=== PATIENT | male | born 1990 | race Native Hawaiian/Other Pacific Islander ===

== ENCOUNTER 2024-04-01 14:48 | Outpatient (CLI) | payer MEDICAID, SELFPAY | END 2024-04-01 14:49 | disposition home or self-care (01) | PROVIDERS: PCP Family Medicine; Visit Provider Family Medicine | DX: G40.909 Epilepsy, unspecified, not intractable, without status epilepticus (principal); Z79.899 Other long term (current) drug therapy | CPT/HCPCS: 80164; 80165; 80235; 82140 ==

== ENCOUNTER 2024-08-25 10:13 | Outpatient (CLI) | payer MEDICAID, SELFPAY | END 2024-08-25 10:14 | disposition home or self-care (01) | PROVIDERS: PCP Family Medicine; Visit Provider Family Medicine | DX: Z00.00 Encounter for general adult medical examination without abnormal findings (principal); G40.909 Epilepsy, unspecified, not intractable, without status epilepticus | CPT/HCPCS: 80048; 80164; 80165; 80235; 84460; 85025 ==

== ENCOUNTER 2025-01-17 11:03 | Emergency (ER) | payer MEDICAID, SELFPAY ==
--- OUTSIDE RECORDS SUMMARY | 2025-01-16 18:59 | XMS_ITS | Encounter Summary ---
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 Burgos MD IM CT ORDERABLES Final Result * (ABNORMAL) CBC with platelets and differential (01/16/2025 7:39 PM ADMINISTRATIVE SUPPORT TECHNICIAN) WBC Count 7.15 4.00 - 11.00 10e3/uL 01/16/2025 7:56 PM ADMINISTRATIVE SUPPORT TECHNICIAN [facility] RBC Count 4.27(L) 4.40 - 5.90 10e6/uL 01/16/2025 7:56 PM ADMINISTRATIVE SUPPORT TECHNICIAN [facility] Hemoglobin 14.1 13.3 - 17.7 g/dL 01/16/2025 7:56 PM ADMINISTRATIVE SUPPORT TECHNICIAN [facility] Hematocrit 41.9 40.0 - 53.0 % 01/16/2025 7:56 PM ADMINISTRATIVE SUPPORT TECHNICIAN [facility] MCV 98.1 78.0 - 100.0 fL 01/16/2025 7:56 PM ADMINISTRATIVE SUPPORT TECHNICIAN [facility] MCH 33.0 26.5 - 33.0 pg 01/16/2025 7:56 PM ADMINISTRATIVE SUPPORT TECHNICIAN [facility] MCHC 33.7 31.5 - 36.5 g/dL 01/16/2025 7:56 PM ADMINISTRATIVE SUPPORT TECHNICIAN [facility] RDW 11.8 10.0 - 15.0 % 01/16/2025 7:56 PM ADMINISTRATIVE SUPPORT TECHNICIAN [facility] Platelet Count 262 150 - 450 10e3/uL 01/16/2025 7:56 PM ADMINISTRATIVE SUPPORT TECHNICIAN [facility] % Neutrophils 64.1 % 01/16/2025 7:56 PM ADMINISTRATIVE SUPPORT TECHNICIAN [facility] % Lymphocytes 30.2 % 01/16/2025 7:56 PM ADMINISTRATIVE SUPPORT TECHNICIAN [facility] % Monocytes 4.8 % 01/16/2025 7:56 PM ADMINISTRATIVE SUPPORT TECHNICIAN [facility] % Eosinophils 0.0 % 01/16/2025 7:56 PM ADMINISTRATIVE SUPPORT TECHNICIAN [facility] % Basophils 0.6 % 01/16/2025 7:56 PM ADMINISTRATIVE SUPPORT TECHNICIAN [facility] % Immature Granulocytes 0.3 % 01/16/2025 7:56 PM ADMINISTRATIVE SUPPORT TECHNICIAN [facility] NRBCs per 100 WBC 0.0 <1.0 /100 025 7:56 PM ADMINISTRATIVE SUPPORT TECHNICIAN [facility] Absolute Neutrophils 4.59 1.60 - 8.30 10e3/uL 01/16/2025 7:56 PM ADMINISTRATIVE SUPPORT TECHNICIAN [facility] Absolute Lymphocytes 2.16 0.80 - 5.30 10e3/uL 01/16/2025 7:56 PM ADMINISTRATIVE SUPPORT TECHNICIAN [facility] Absolute Monocytes 0.34 0.00 - 1.30 10e3/uL 01/16/2025 7:56 PM ADMINISTRATIVE SUPPORT TECHNICIAN [facility] Absolute Eosinophils <0.03 0.00 - 0.70 10e3/uL 01/16/2025 7:56 PM ADMINISTRATIVE SUPPORT TECHNICIAN [facility] Absolute Basophils 0.04 0.00 - 0.20 10e3/uL 01/16/2025 7:56 PM ADMINISTRATIVE SUPPORT TECHNICIAN [facility] Absolute Immature Granulocytes <0.03 <=0.40 10e3/uL 01/16/2025 7:56 PM ADMINISTRATIVE SUPPORT TECHNICIAN [facility] Absolute NRBCs <0.03 10e3/uL 01/16/2025 7:56 PM ADMINISTRATIVE SUPPORT TECHNICIAN [facility] Blood STRUCTURE OF LEFT HAND / Unknown Venipuncture / Unknown 01/16/2025 7:39 PM ADMINISTRATIVE SUPPORT TECHNICIAN 01/16/2025 7:48 PM ADMINISTRATIVE SUPPORT TECHNICIAN us Gonzalez Burgos MD LAB - BLOOD ORDERABLES Final Result [facility] [address] Lab (1st floor, no room number) [place] [address], [facility] * (ABNORMAL) Ethanol Level Blood (01/16/2025 7:39 PM ADMINISTRATIVE SUPPORT TECHNICIAN) Ethanol Level Blood 0.35(HH) <=0.01 g/dL 01/16/2025 8:25 PM ADMINISTRATIVE SUPPORT TECHNICIAN [facility] Comment:This is an unconfirm ed screening result to be used for medical purposes only. Blood STRUCTURE OF LEFT HAND / Unknown Venipuncture / Unknown 01/16/2025 7:39 PM ADMINISTRATIVE SUPPORT TECHNICIAN 01/16/2025 7:48 PM ADMINISTRATIVE SUPPORT TECHNICIAN us Gonzalez Burgos MD LAB - BLOOD ORDERABLES Final Result [facility] [address] [facility] ([facility] floor, no room number) [place] [address], [facility] * (ABNORMAL) Basic Metabolic Panel (Limited Occurrences) (01/16/2025 7:39 PM ADMINISTRATIVE SUPPORT TECHNICIAN) [facility] Sodium 142 135 - 145 mmol/L 01/16/2025 8:[address] [facility] Potassium 3.6 3.4 - 5.3 mmol/L 01/16/2025 8:[address] [facility] Chloride 105 98 - 107 mmol/L 01/16/2025 8:[address] [facility] Carbon Dioxide (CO2) 19(L) 22 - 29 mmol/L 01/16/2025 8:[address] [facility] Anion Gap 18(H) 7 - 15 mmol/L 01/16/2025 8:[address] [facility] Urea Nitrogen 9.4 6.0 - 20.0 mg/dL 01/16/2025 8:[address] [facility] Creatinine 0.86 0.67 - 1.17 mg/dL 01/16/2025 8:[address] [facility] GFR Estimate >90 >60 mL/min/1.7 3m2 01/16/2025 8:[address] [facility] Comment:eGFR calculated usin 2020 CKD-EPI equation. Calcium 9.1 8.8 - 10.4 mg/dL 01/16/2025 8:[address] [facility] Glucose 108(H) 70 - 99 mg/dL 01/16/2025 8:[address] [facility] Blood STRUCTURE OF LEFT HAND / Unknown Venipuncture / Unknown 01/16/2025 7:39 PM ADMINISTRATIVE SUPPORT TECHNICIAN 01/16/2025 7:48 PM ADMINISTRATIVE SUPPORT TECHNICIAN Gonzalez Burgos MD LAB - BLOOD ORDERABLES Final Result [facility] [address] [facility] Lab (1st floor, no room number) [place] [address], [facility] documented in this encounter Visit Diagnoses Diagnosis Alcoholic intoxication with complication- Primary Facial contusion, initial encounter Arm laceration, left, sequela Abrasions of multiple sites Abrasion or friction burn of other, multiple, and unspecified sites, without mention of infection documented in this encounter Administered Medications Active Administered Medications - up to 3 most recent administrations Medication Order MAR Action Action Date Dose Rate Site OLANZapine (zyPREXA) injection 10 mg 10 mg, Intramuscular, DAILY PRN, agitation, Starting on 01/16/25 at 1919, Dissolve the contents of the 10 mg vial using 2.1 mL of Sterile Water for Injection to provide a solution containing 5 mg/mL of olanzapine. Withdraw the ordered dose from vial. Use immediately (within 1 hour) after reconstitution. Discard any unused portion. $Given 01/16/2025 7:00 PM ADMINISTRATIVE SUPPORT TECHNICIAN 10 mg Inactive Administered Medications - up to 3 most recent administrations Medication Order MAR Action Action Date Dose Rate Site midazolam (VERSED) injection 5 mg 5 mg, Intramuscular, Administer over 2 Minutes, ONCE, On 01/16/25 at 1905, For 1 dose, This drug may cause significant respiratory depression. Monitor respiratory status and vital signs carefully for 1 hour after each dose. $Given 01/16/2025 7:10 PM ADMINISTRATIVE SUPPORT TECHNICIAN 5 mg documented in this encounter Active and Recently Administered Medications Times are shown in ADMINISTRATIVE SUPPORT TECHNICIAN. Scheduled Medication Order 01/15/2025 01/16/2025 01/17/2025 midazolam (VERSED) injection 5 mg (COMPLETED) 5 mg, Intramuscular, Administer over 2 Minutes, ONCE, On 01/16/25 at 1905, For 1 dose, This drug may cause significant respiratory depression. Monitor respiratory status and vital signs carefully for 1 hour after each dose. 1909 ($Given - Provider: Jesus Joyce RN) PRN Medication Order 01/15/2025 01/16/2025 01/17/2025 OLANZapine (zyPREXA) injection 10 mg 10 mg, Intramuscular, DAILY PRN, agitation, Starting on 01/16/25 at 1919, Dissolve the contents of the 10 mg vial using 2.1 mL of Sterile Water for Injection to provide a solution containing 5 mg/mL of olanzapine. Withdraw the ordered dose from vial. Use immediately (within 1 hour) after reconstitution. Discard any unused portion. 1900 ($Given - Provider: Jesus Joyce RN) No Frequency Medication Order 01/15/2025 01/16/2025 01/17/2025 lidocaine 1% with EPINEPHrine 1:100,000 1 %-[id number] injection Starting on 01/17/25 at 0725, For 1 dose, Paige Adams A: cabinet override [id number] (Due) documented in this encounter Care Teams Surgical Tech Relationship Specialty Start Date End Date No Ref-Primary, Physician PCP - General 01/17/25 documented as of this encounter
--- OUTSIDE RECORDS SUMMARY | 2025-01-17 11:06 | XMS_ITS | Clinical Summary ---
Author Organization [facility] Address [address] [place] [id number] Care Team Providers Care Legal Technician Name Role Phone None Primary Care Provider Unavailabl e Allergies No known active allergies Medications diazePAM CONCENTRATE (DIAZEPAM INTENSOL) 5 mg/mL solutionIndicati ons:Seizure (HC) Take 2 mL (10 mg) by mouth every 8 hours if needed for Seizures (lasting > 3 minutes. May repeat x 1 if seizure continues additional 10 minutes.). 30 mL 4 Active lacosamide 100 mg tabletIndication s:Seizure (HC) Take 1 Tablet (100 mg) by mouth two times daily. 60 Tablet 03/24/2024 11:15 AM MEDICAL REVIEWER 5 Active mirtazapine 15 mg tablet Take 15 mg by mouth at bedtime. 5 Active traMADoL 50 mg tabletIndication s:Dental infection Take 1 Tablet (50 mg) by mouth every 6 hours if needed for Pain. 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 Tuberculosis 04/24/2020 Sinusitis 04/24/2020 Encounters Date Type Department Care Team Description 12/30/2024 11:39 AM CDT - 12/30/2024 2:33 PM CDT Emergency [facility] [address] [facility] [place] [address] Fran Martinez MD Seizure (HC) (Primary Dx) Discharge Disposition: Home Self Care 12/30/2024 Travel 12/06/2024 12:47 PM CDT - 12/06/2024 4:45 PM CDT Emergency [facility] [address] [place] [address] Acute streptococcal pharyngitis (Primary Dx); Wound of right lower extremity, initial encounter; Nonintractable epilepsy without status epilepticus, unspecified epilepsy type (HC) Discharge Disposition: Home Self Care 12/06/2024 Travel 11/16/2024 5:34 PM CDT - 11/16/2024 8:35 PM CDT Emergency [facility] [address] [place] [address] Panfilo Schulte PA Seizure (HC) (Primary Dx); Acute nonintractable headache, unspecified headache type; Upper respiratory tract infection, unspecified type Discharge Disposition: Home Self Care 11/16/2024 Travel from Last 3 Months Immunizations Immunization Administration Dates Next Due Tdap 06/16/2024 Social History Tobacco Use Types Packs/Day Years Used Date Smoking Tobacco: Some Days Cigarettes Smokeless Tobacco: Never Tobacco Cessation:Ready to Q uit: Not Asked; Counseling Given: Not Answered Alcohol Use Standard Drinks/Week Comments Not Currently 0 (1 standard drink = 0.6 oz pur e alcohol) Interpersonal Safety Answer Date Record ed Are you being hit, kicked, p ushed or yelled at (see row info)? No 12/30/2024 Interpersonal Safety Abuse 12 - 18 Not on file 12/30/2024 Interpersonal Safety Ambulatory Vulnerability No t on file 12/30/2024 Sex and Gender Information Value Date Recorded Sex Assigned at Male 06/16/2024 10:24 PM CDT Legal Sex Male 3:50 PM CDT Gender Identity Male 06/16/2024 10:24 PM CDT Sexual Orientation Straight 06/16/2024 10 :24 PM CDT Obstetrics History Last Filed Vital Signs Vital Sign Reading Time Taken Comments Blood Pressure 111/65 12/30/2024 1:41 PM CDT Pulse 54 12/30/2024 1:41 PM CDT Temperature 36.8 C (98.2 F) 12/30/2024 11:41 AM CDT Respiratory Rate 28 12/30/2024 1:41 PM CDT Oxygen Saturation 95% 12/30/2024 1:41 PM CDT Inhaled Oxygen Concentration - - Weight 94.3 kg (208 lb) 12/30/2024 11:41 AM CDT Height 177.8 cm (5' 10) 12/30/2024 11:41 AM CDT Body Mass Index 29.84 12/30/2024 11:41 AM CDT Plan of Treatment Health Maintenance Due Date Last Done Comments Depression screening for age 12+ 2003 BMI (ht and wt on same day) for age 18+ 11/08/2009 Hepatitis C screening for age 18-79 11/08/2009 Hepatitis B series for 19+ ( 1 of 3 - 19+ 3-dose series) 11/08/2010 Pneumococcal series for age 6-49 (1 of 2 - PCV) 2010 HPV series for age 9-45 (1 - 3-dose SCDM series) 11/08 Influenza Vaccine (#1) 2024 Tetanus booster 06/16/2034 06/16/2024 RSV vaccine for adults or pr egnancy (1 - 1-dose 75+ series) 11/08/2066 HIV for age 15-65 Completed 03/20/2024 Procedures Procedure Name Priority Date/Time Associated Diagnosis Comments VALPROIC ACID TOTAL STAT 12/30/2024 1 2:10 PM CDT LACOSAMIDE (VIMPAT) STAT 12/30/2024 1 2:10 PM CDT MAGNESIUM STAT 12/30/2024 12:10 PM CDT COMP METABOLIC PANEL STAT 12/30/2024 12:10 PM CDT CBC W PLT NO DIFF STAT 12/30/2024 12: 10 PM CDT INFLUENZA A/B PCR STAT 12/06/2024 1:3 1 PM CDT COVID-19 MOLECULAR STAT 12/06/2024 1: 31 PM CDT UA W/ SEDIMENT EXAM REFLEXED PER CRITERIA STAT 12/06/2024 1:31 PM CDT THROAT RAPID STREP ONLY CLINIC STAT 12/06/2024 1:31 PM CDT UA W/ SEDIMENT EXAM REFLEXED PER CRITERIA STAT 11/16/2024 7:57 PM CDT XR CHEST 1 VIEW PORTABLE STAT 11/16/2024 7:05 PM CDT EXTRA TUBE LIGHT GREEN Today 11/16/2024 6:01 PM CDT CBC WITH AUTO DIFFERENTIAL STAT 11/16/2024 6:01 PM CDT LACTATE VENOUS Today 11/16/2024 6:01 PM CDT C-REACTIVE PROTEIN STAT 11/16/2024 6: 01 PM CDT BASIC METABOLIC PANEL STAT 11/16/2024 6:01 PM CDT CBC WITH AUTO DIFFERENTIAL STAT 11/16/2024 6:01 PM CDT COVID-19 MOLECULAR Today 11/16/2024 5: 43 PM CDT INFLUENZA A/B PCR STAT 11/16/2024 5:4 3 PM CDT RAPID HIV SCREEN Today 03/20/2024 3:29 PM MEDICAL REVIEWER from Last 3 Months or Most Recently Relevant to Health Maintenance Results * (ABNORMAL) LACOSAMIDE (VIMPAT) (12/30/2024 12:10 PM CDT) Pathologist [facility] LACOSAMIDE 3.6(L) 5.0 - 10.0 ug/mL 01/06/2025 11:09 AM MEDICAL REVIEWER [facility] ([facility]) Comment: Limit of Detection 0.5 Mean plasma concentrations following maintenance dose 200 mg/day 4.99 +/- 2.51 ug/mL 400 mg/day 9.35 +/- 4.22 ug/mL 600 mg/day 12.46 +/- 5.60 ug/mL Blood BLOOD SPECIMEN / Unknown IV Start / Unknown 12/30/2024 12:10 PM CDT 12/30/2024 12:16 PM CDT Narrative [facility] ([facility]) - 01/06/2025 11:09 AM MEDICAL REVIEWER Test(s) 780774-[id number] was developed and its performance characteristics determined by [facility]. It has not been cleared or approved by the Food and Drug Administration. Performed at: - [address] [id number] Edge Drummer: Jessi Simon MD, Phone: [phone] us Frna Martinez MD CHEMISTRY Final Res ult [facility] ([facility]) [address] [place] [address], * (ABNORMAL) CBC W PLT NO DIFF (12/30/2024 12:10 PM CDT) [facility] WHITE BLOOD COUNT 6.2 4.5 - 11.0 thou/cu mm 12/30/2024 12:27 PM CDT [facility] RED BLOOD COUNT 3.76(L) 4.30 - 5.90 mil/cu mm 12/30/2024 12:27 PM CDT [facility] HEMOGLOBIN 12.4(L) 13.5 - 17.5 g/dL 12/30/2024 12:27 PM CDT [facility] HEMATOCRIT 37.0 37.0 - 53.0 % 12/30/2024 12:27 PM CDT [facility] MCV 98 80 - 100 fL 12/30/2024 12:27 PM CDT [facility] MCH 33.0 26.0 - 34.0 pg 12/30/2024 12:27 PM CDT [facility] MCHC 33.5 32.0 - 36.0 g/dL 12/30/2024 12:27 PM CDT [facility] RDW 12.0 11.5 - 15.5 % 12/30/2024 12:27 PM CDT [facility] PLATELET COUNT 208 140 - 440 thou/cu mm 12/30/2024 12:27 PM CDT [facility] MPV 10.0 6.5 - 11.0 fL 12/30/2024 12:27 PM CDT [facility] NRBC 0.0 % 12/30/2024 12:27 PM CDT [facility] ABS NRBC 0.0 thou /cu mm 12/30/2024 12:27 PM CDT [facility] Blood BLOOD SPECIMEN / Unknown IV Start / Unknown 12/30/2024 12:10 PM CDT 12/30/2024 12:16 PM CDT Fran Martinez MD HEMATOLOGY Final Res ult [facility] [address] [place] [address] * (ABNORMAL) VALPROIC ACID TOTAL (12/30/2024 12:10 PM CDT) VALPROIC ACID,TOTAL 37.4(L) 50.0 - 100.0 ug/mL 12/30/2024 7:39 PM CDT [facility] Blood BLOOD SPECIMEN / Unknown IV Start / Unknown 12/30/2024 12:10 PM CDT 12/30/2024 12:16 PM CDT Fran Martinez MD CHEMISTRY Final Res ult [facility] [address] [place] [address], * MAGNESIUM (12/30/2024 12:10 PM CDT) MAGNESIUM 1.9 1.6 - 2.6 mg/dL 12/30/2024 12:41 PM CDT [facility] Blood BLOOD SPECIMEN / Unknown IV Start / Unknown 12/30/2024 12:10 PM CDT 12/30/2024 12:16 PM CDT us Fran Martinez MD CHEMISTRY Final Res ult [facility] [address] [place] [address] * (ABNORMAL) COMP METABOLIC PANEL (12/30/2024 12:10 PM CDT) SODIUM 139 136 - 145 mmol/L 12/30/2024 12:41 PM CDT [facility] POTASSIUM 4.7 3.5 - 5.1 mmol/L 12/30/2024 12:41 PM CDT [facility] CHLORIDE 107 98 - 107 mmol/L 12/30/2024 12:41 PM CDT [facility] CO2,TOTAL 22 22 - 29 mmol/L 12/30/2024 12:41 PM CDT [facility] ANION GAP 10 5 - 18 12/30/2024 12:41 PM CDT [facility] GLUCOSE 85 70 - 99 mg/dL 12/30/2024 12:41 PM CDT [facility] CALCIUM 8.7(L) 8.8 - 10.4 mg/dL 12/30/2024 12:41 PM CDT [facility] Comment: Reference ranges for this test were updated on 01/07/2024 to reflect our healthy population more accurately. Reference range changes are not retroactively applied to results, but previous results using the same methodology can be interpreted in the context of the new reference range. BUN 11 6 - 20 mg/dL 12/30/2024 12:41 PM CDT [facility] CREATININE 0.72 0.70 - 1.20 mg/dL 12/30/2024 12:41 PM CDT [facility] BUN/CREAT RATIO 15 10 - 20 12:41 PM CDT [facility] eGFR >90 >90 mL/min/1.7 3m2 12/30/2024 12:41 PM CDT [facility] Comment:As of 2021, eG FR is calculated by the CKD-EPI creatinine equation without race adjustment. eGFR can be influenced by muscle mass, exercise, and diet. The reported eGFR is an estimation only and is only applicable if the renal function is stable. ALBUMIN 4.0 4.0 - 4.9 g/dL 12/30/2024 12:41 PM CDT [facility] PROTEIN,TOTAL 6.6 6.0 - 8.0 g/dL 12/30/2024 12:41 PM CDT [facility] BILIRUBIN,TOTAL 0.3 0.0 - 1.2 mg/dL 12/30/2024 12:41 PM CDT [facility] ALK PHOSPHATASE 56 40 - 129 IU/L 12/30/2024 12:41 PM CDT [facility] ALT (SGPT) 9(L) 10 - 50 IU/L 12/30/2024 12:41 PM CDT [facility] AST (SGOT) 22 10 - 50 IU/L 12/30/2024 12:41 PM CDT [facility] Blood BLOOD SPECIMEN / Unknown IV Start / Unknown 12/30/2024 12:10 PM CDT 12/30/2024 12:16 PM CDT us Fran Mratinez MD CHEMISTRY Final Res ult [facility] [address] [place] [address] * COVID-19 MOLECULAR (12/06/2024 1:31 PM CDT) Only the most recent of2 resultswithin the time period is included. COVID 19 [facility] MOLECULAR Not detected Not detected 12/06/2024 4:10 PM CDT [facility] TESTING LABORATORY [facility] 12/06/2024 4:10 PM CDT [facility] Comment:Specimen submitted t o [facility] for testing. Other SPECIMEN FROM NASOPHARYNGEAL STRUCTURE / Unknown Non-Blood / Unknown 12/06/2024 1:31 PM CDT 12/06/2024 3:49 PM CDT us Audra Lee MD MICROBIOLOGY Final Res ult Performing Organization Address [facility]/ZIP Co de Phone Number [facility] [address] [place] [id number] * INFLUENZA A/B PCR (12/06/2024 1:31 PM CDT) Only the most recent of2 resultswithin the time period is included. INFLUENZA A PCR NOT Detected 12/06/2024 4:10 PM CDT [facility] INFLUENZA B PCR NOT Detected 12/06/2024 4:10 PM CDT [facility] Other SPECIMEN FROM NASOPHARYNGEAL STRUCTURE / Unknown Non-Blood / Unknown 12/06/2024 1:31 PM CDT 12/06/2024 3:49 PM CDT us Audra Lee MD MICROBIOLOGY Final Res ult Performing Organization Address [facility] de Phone Number [facility] [address] [place] [id number] * UA W/ SEDIMENT EXAM REFLEXED PER CRITERIA (12/06/2024 1:31 PM CDT) Only the most recent of2 resultswithin the time period is included. COLOR Yellow Yellow Color 12/06/2024 1:42 PM CDT [facility] CLARITY Clear Clear Clarity 12/06/2024 1:42 PM CDT [facility] SPECIFIC GRAVITY,URINE 1.010 1.010, 1.015, 1.020, 1.025 12/06/2024 1:42 PM CDT [facility] PH,URINE 7.0 6.0, 7.0, 8.0, 5.5, 6.5, 7.5, 8.5 12/06/2024 1:42 PM CDT [facility] UROBILINOGEN, QUALITATIVE Normal Normal EU/dl 12/06/2024 1:42 PM CDT [facility] PROTEIN, URINE Negative Negative mg/dL 12/06/2024 1:42 PM CDT [facility] GLUCOSE, URINE Negative Negative mg/dL 12/06/2024 1:42 PM CDT [facility] KETONES,URINE Negative Negative mg/dL 12/06/2024 1:42 PM CDT [facility] BILIRUBIN,URI NE Negative Negative 12/06/2024 1:42 PM CDT [facility] OCCULT BLOOD,URINE Negative Negative 12/06/2024 1:42 PM CDT [facility] NITRITE Negative Negative 12/06/2024 1:42 PM CDT [facility] LEUKOCYTE ESTERASE Negative Negative 12/06/2024 1:42 PM CDT [facility] Urine URINE SPECIMEN / Unknown Non-Blood / Unknown 12/06/2024 1:31 PM CDT 12/06/2024 1:38 PM CDT us Audra Lee MD URINE Final Res ult Performing Organization Address City/[facility]/ZIP Co de Phone Number [facility] [address] [place] [address] * (ABNORMAL) THROAT RAPID STREP (AGE 18+) (12/06/2024 1:31 PM CDT) THROAT RAPID STREP A ANTIGEN Positive(A ) 12/06/2024 1:45 PM CDT [facility] Throat SPECIMEN FROM THROAT / Unknown Non-Blood / Unknown 12/06/2024 1:31 PM CDT 12/06/2024 1:37 PM CDT us Audra Lee MD MICROBIOLOGY Final Res ult Performing Organization Address City/[facility]/ZIP Co de Phone Number [facility] [address] [place] [address] * XR CHEST 1 VIEW PORTABLE (11/16/2024 7:05 PM CDT) Anatomical Region Laterality Modality HEART, THORAX, CHEST Digital Rad iography 11/16/2024 7:17 PM CDT Impressions 11/16/2024 7:17 PM CDT Negative chest. Dictated by Stevie Martínez MD @ 11/16/2024 7:17:44 PM (Electronically Signed) Narrative 11/16/2024 7:17 PM CDT For Patients: As a result of the Cures Act, medical imaging exams and procedure reports are released immediately into your electronic medical record. You may view this report before your referring provider. If you have questions, please contact your health care provider. INDICATION: Cough. TECHNIQUE: Chest 1 views. COMPARISON: March 20, 2024. FINDINGS: Cardiovasculature and mediastinum: Heart size is normal. Unremarkable mediastinum. Lungs and pleural spaces: Lungs are clear. No sign of infiltrate or mass. No sign of pleural effusion. No pneumothorax. Bones and soft tissues: No significant findings. Procedure Note Stevie Martínez MD - 11/16/2024 For Patients: As a result of the Cures Act, medical imagingexams and procedure reports are released immediately into your electronicmedical record. You may view this report before your referring provider.If you have questions, please contact your health care provider. INDICATION: Cough. TECHNIQUE: Chest 1 views. COMPARISON: March 20, 2024. FINDINGS: Cardiovasculature and mediastinum: Heart size is normal. Unremarkablemediastinum. Lungs and pleural spaces: Lungs are clear. No sign of infiltrate ormass. No sign of pleural effusion. No pneumothorax. Bones and soft tissues: No significant findings. IMPRESSION: Negative chest. Dictated by Stevie Martínez MD @ 11/16/2024 7:17:44 PM (Electronically Signed) [facility] al Result * (ABNORMAL) CBC WITH AUTO DIFFERENTIAL (11/16/2024 6:01 PM CDT) WHITE BLOOD COUNT 9.2 4.5 - 11.0 thou/cu mm 11/16/2024 6:25 PM [facility] RED BLOOD COUNT 3.92(L) 4.30 - 5.90 mil/cu mm 11/16/2024 6:25 PM [facility] HEMOGLOBIN 13.2(L) 13.5 - 17.5 g/dL 11/16/2024 6:25 PM [facility] HEMATOCRIT 38.6 37.0 - 53.0 % 11/16/2024 6:25 PM [facility] MCV 99 80 - 100 fL 11/16/2024 6:25 PM [facility] MCH 33.7 26.0 - 34.0 pg 11/16/2024 6:25 PM [facility] MCHC 34.2 32.0 - 36.0 g/dL 11/16/2024 6:25 PM [facility] RDW 11.2(L) 11.5 - 15.5 % 11/16/2024 6:25 PM [facility] PLATELET COUNT 182 140 - 440 thou/cu mm 11/16/2024 6:25 PM [facility] MPV 10.3 6.5 - 11.0 fL 11/16/2024 6:25 PM [facility] % NEUT 78.9 % 11/16/2024 6:25 PM [facility] % LYMPH 11.7 % 11/16/2024 6:25 PM [facility] % MONO 8.9 % 11/16/2024 6:25 PM [facility] % EOS 0.3 % 11/16/2024 6:25 PM [facility] % BASO 0.2 % 11/16/2024 6:25 PM [facility] ABSOLUTE NEUTROPHILS 7.2(H) 1.7 - 7.0 thou/cu mm 11/16/2024 6:25 PM [facility] ABSOLUTE LYMPHOCYTES 1.1 0.9 - 2.9 thou/cu mm 11/16/2024 6:25 PM [facility] ABSOLUTE MONOCYTES 0.8 <0.9 thou/cu mm 11/16/2024 6:25 PM CDT [facility] ABSOLUTE EOSINOPHILS 0.0 <0.5 thou/cu mm 11/16/2024 6:25 PM CDT [facility] ABSOLUTE BASOPHILS 0.0 <0.3 thou/cu mm 11/16/2024 6:25 PM CDT [facility] Blood BLOOD SPECIMEN / Unknown Venipuncture / Unknown 11/16/2024 6:01 PM CDT 11/16/2024 6:10 PM CDT [facility] Fin al Result [facility] [address] [place] [address] * EXTRA TUBE LIGHT GREEN (11/16/2024 6:01 PM CDT) Blood BLOOD SPECIMEN / Unknown Extra Tube / Unknown 11/16/2024 6:01 PM CDT 11/16/2024 6:30 PM CDT Doctor Unknown LABORATORY Final Result Performing Organization Address City/[facility]/ZIP Co de Phone Number [facility] [address] [place] [address] * LACTATE VENOUS (11/16/2024 6:01 PM CDT) [facility] LACTATE,VENOUS 1.9 0.5 - 2.0 mmol/L 11/16/2024 6:31 PM CDT [facility] Blood BLOOD SPECIMEN / Unknown Venipuncture / Unknown 11/16/2024 6:01 PM CDT 11/16/2024 6:11 PM CDT [facility] Fin al Result [facility] [address] [place] [address] * C-REACTIVE PROTEIN (11/16/2024 6:01 PM CDT) [facility] C-REACTIVE PROTEIN <0.3 <0.5 mg/dL 11/16/2024 6:31 PM [facility] Blood BLOOD SPECIMEN / Unknown Venipuncture / Unknown 11/16/2024 6:01 PM CDT 11/16/2024 6:10 PM CDT us [facility] Fin al Result [facility] [address] [place] [address] * BASIC METABOLIC PANEL (11/16/2024 6:01 PM CDT) [facility] SODIUM 139 136 - 145 mmol/L 11/16/2024 6:30 PM [facility] POTASSIUM 4.9 3.5 - 5.1 mmol/L 11/16/2024 6:30 PM [facility] CHLORIDE 105 98 - 107 mmol/L 11/16/2024 6:30 PM [facility] CO2,TOTAL 22 22 - 29 mmol/L 11/16/2024 6:30 PM [facility] ANION GAP 12 5 - 18 11/16/2024 6:30 PM [facility] GLUCOSE 81 70 - 99 mg/dL 11/16/2024 6:30 PM [facility] CALCIUM 9.2 8.8 - 10.4 mg/dL 11/16/2024 6:30 PM [facility] Comment: Reference ranges for this test were updated on 01/07/2024 to reflect our healthy population more accurately. Reference range changes are not retroactively applied to results, but previous results using the same methodology can be interpreted in the context of the new reference range. BUN 11 6 - 20 mg/dL 11/16/2024 6:30 PM [facility] CREATININE 0.85 0.70 - 1.20 mg/dL 11/16/2024 6:30 PM [facility] BUN/CREAT RATIO 13 10 - 20 6:30 PM CDT [facility] eGFR >90 >90 mL/min/1.7 3m2 11/16/2024 6:30 PM CDT [facility] Comment:As of 2021, eG FR is calculated by the CKD-EPI creatinine equation without race adjustment. eGFR can be influenced by muscle mass, exercise, and diet. The reported eGFR is an estimation only and is only applicable if the renal function is stable. Blood BLOOD SPECIMEN / Unknown Venipuncture / Unknown 11/16/2024 6:01 PM CDT 11/16/2024 6:10 PM CDT [facility] Fin al Result Performing Organization Address [facility] Co de Phone Number [facility] [address] [place] [address] * RAPID HIV SCREEN (03/20/2024 3:29 PM MEDICAL REVIEWER) [facility] RAPID HIV SCREEN Non-React damir Non-Reactiv e, Invalid 03/20/2024 3:57 PM MEDICAL REVIEWER [facility] TRAL LABORATORY Comment:A NONREACTIVE test r esult means that HIV-1 or HIV-2 antibodies and HIV-1 p24 antigen were not detected in the specimen. Blood BLOOD SPECIMEN / Unknown Non-Lab Venipuncture / Unknown 03/20/2024 3:29 PM MEDICAL REVIEWER 03/20/2024 3:29 PM MEDICAL REVIEWER us Andrey LAU CHEMISTRY Final Result Performing Organization Address City/[facility] Co de Phone Number [facility] [address] [place] [address], from Last 3 Months or Most Recently Relevant to Health Maintenance Insurance [employer] [place] C[employer] Advance Directives * Full Code (Latest Code Status on File) Date Activated Date Inactivated Comments 03/16/2024 6:53 AM 03/24/2024 4:46 PM Question Answer Comments Code Status Discussion: Unable to Assess Preferences, Provider to review later * Full Code Date Activated Date Inactivated Comments 09/22/2023 10:26 AM 09/24/2023 12:55 PM Question Answer Comments Code Status Discussion: Reviewed Preferences Care Teams Legal Technician Relationship Specialty Start Date End Date None . PCP - General 11/16/24
--- OUTSIDE RECORDS SUMMARY | 2025-01-17 11:06 | XMS_ITS | Clinical Summary ---
Author Organization [place] Address [facility] [place] [address] Care Team Providers Care Family Resource Coordinator Name Role Phone No Ref-Primary, Physician Primary Care Provider Medications No known medications Encounters Date Type Department Care Team Description 01/16/2025 6:[address] SQL DEVELOPER - 01/17/2025 9:[address] SQL DEVELOPER Emergency [facility] Emergency Dept [address] [place] [address] Gonzalez Burgos MD Battista, MD Marion Macario, Hermelinda Frias MD Alcoholic intoxication with complication (Primary Dx); Facial contusion, initial encounter; Arm laceration, left, sequela; Abrasions of multiple sites Discharge Disposition: Home or Self Care 01/16/2025 Travel from Last 3 Months Social History Tobacco Use Types Packs/Day Years Used Date Smoking Tobacco: Never Assessed Sex and Gender Information Value Date Recorded Sex Assigned at Not on file Legal Sex Male 6:[address] SQL DEVELOPER Gender Identity Not on file Sexual Orientation Not on file Last Filed Vital Signs Vital Sign Reading Time Taken Comments Blood Pressure 125/85 01/17/2025 4:[address] SQL DEVELOPER Pulse 66 01/17/2025 4:[address] SQL DEVELOPER Temperature - - Respiratory Rate 18 01/17/2025 2:[address] SQL DEVELOPER Oxygen Saturation 95% 01/17/2025 4:[address] SQL DEVELOPER Inhaled Oxygen Concentration - - Weight - - Height - - Body Mass Index - - Plan of Treatment Health Maintenance Due Date Last Done Comments ADVANCE CARE PLANNING 1991 ANNUAL REVIEW OF HM ORDERS 1991 YEARLY PREVENTIVE VISIT 11/08/1994 HEPATITIS C SCREENING 11/08/2009 HEPATITIS B VACCINE (1 of 3 - 19+ 3-dose series) 11/08/2010 PHQ-2 (once per calendar year) 2024 COVID-19 VACCINE (1 - 2024-2 6 season) 2024 INFLUENZA VACCINE (#1) 2024 DTAP/TDAP/TD VACCINE (2 - Td or Tdap) 06/16/2034 06/16/2024 ZOSTER VACCINE (1 of 2) 11/08/2041 HIV SCREENING Completed 03/20/2024 HPV VACCINE (No Doses Required) Completed MENINGITIS VACCINE Aged Out No longer eligible based on patient's age to complete this topic PNEUMOCOCCAL VACCINE: PEDIAT RICS (0 to 5 YEARS) AND AT-RISK PATIENTS (6 to 49 YEARS) Aged Out No longer eligi ble based on patient's age to complete this topic Procedures Procedure Name Priority Date/Time Associated Diagnosis Comments CT FACIAL BONES WITHOUT CONTRAST STAT 01/16/2025 10:[address] HEAD W/O CONTRAST STAT 01/16/2025 10:[address] SQL DEVELOPER CBC WITH PLATELETS AND DIFFERENTIAL (LIMITED OCCURRENCES) STAT 01/16/2025 7:[address] SQL DEVELOPER CBC WITH PLATELETS AND DIFFERENTIAL STAT 01/16/2025 7:[address] SQL DEVELOPER ETHANOL LEVEL BLOOD STAT 01/16/2025 7 [address] SQL DEVELOPER BASIC METABOLIC PANEL (LIMITED OCCURRENCES) STAT 01/16/2025 7:[address] SQL DEVELOPER from Last 3 Months Results * CT Facial Bones without Contrast (01/16/2025 10:[address] SQL DEVELOPER) Anatomical Region Laterality Modality Head, SUBRAD CT NEURO, UMP CT NEURO, RAD CT Computed Tomography 01/16/2025 10:[address] SQL DEVELOPER Impressions 01/16/2025 10:[address] SQL DEVELOPER IMPRESSION: HEAD CT: 1. No acute intracranial process. FACIAL BONE CT: 1. No definite fracture. 2. Root of tooth #24 not identified, there is overlying mild soft tissue swelling; sequela of trauma to anterior mandible cannot be excluded. Narrative 01/16/2025 10:[address] SQL DEVELOPER EXAM: CT HEAD W/O CONTRAST, CT FACIAL BONES WITHOUT CONTRAST LOCATION: [facility] DATE: 01/16/2025 INDICATION: Head and face [...] CONTRAST, CT FACIAL BONES WITHOUT CONTRAST LOCATION: [facility] DATE: 01/16/2025 INDICATION: Head and face [...] Head CT w/o contrast (01/16/2025 10:[address] SQL DEVELOPER) Anatomical Region Laterality Modality Head, SUBRAD CT NEURO, SUBRA D CT NEURO, UMP CT NEURO, RAD CT Computed Tomography 01/16/2025 10:[address] SQL DEVELOPER Impressions 01/16/2025 10:[address] SQL DEVELOPER IMPRESSION: HEAD CT: 1. No acute intracranial process. FACIAL BONE CT: 1. No definite fracture. 2. Root of tooth #24 not identified, there is overlying mild soft tissue swelling; sequela of trauma to anterior mandible cannot be excluded. Narrative 01/16/2025 10:[address] SQL DEVELOPER EXAM: CT HEAD W/O CONTRAST, CT FACIAL BONES WITHOUT CONTRAST LOCATION: [facility] DATE: 01/16/2025 INDICATION: Head and face [...] CONTRAST, CT FACIAL BONES WITHOUT CONTRAST LOCATION: [facility] DATE: 01/16/2025 INDICATION: Head and face [...] cannot be excluded. us Gonzalez Burgos MD [facility] [place] [place] CT ORDERABLES Final Result * (ABNORMAL) CBC with platelets and differential (01/16/2025 7:[address] SQL DEVELOPER) WBC Count 7.15 4.00 - 11.00 10e3/uL 01/16/2025 7:[address] SQL DEVELOPER [facility] RBC Count 4.27(L) 4.40 - 5.90 10e6/uL 01/16/2025 7:[address] SQL DEVELOPER [facility] Hemoglobin 14.1 13.3 - 17.7 g/dL 01/16/2025 7:[address] SQL DEVELOPER [facility] Hematocrit 41.9 40.0 - 53.0 % 01/16/2025 7:[address] SQL DEVELOPER [facility] MCV 98.1 78.0 - 100.0 fL 01/16/2025 7:[address] SQL DEVELOPER [facility] MCH 33.0 26.5 - 33.0 pg 01/16/2025 7:[address] SQL DEVELOPER [facility] MCHC 33.7 31.5 - 36.5 g/dL 01/16/2025 7:[address] SQL DEVELOPER [facility] RDW 11.8 10.0 - 15.0 % 01/16/2025 7:[address] SQL DEVELOPER [facility] Platelet Count 262 150 - 450 10e3/uL 01/16/2025 7:[address] SQL DEVELOPER [facility] % Neutrophils 64.1 % 01/16/2025 7:[address] SQL DEVELOPER [facility] % Lymphocytes 30.2 % 01/16/2025 7:[address] SQL DEVELOPER [facility] % Monocytes 4.8 % 01/16/2025 7:[address] SQL DEVELOPER [facility] % Eosinophils 0.0 % 01/16/2025 7:[address] SQL DEVELOPER [facility] % Basophils 0.6 % 01/16/2025 7:[address] SQL DEVELOPER [facility] % Immature Granulocytes 0.3 % 01/16/2025 7:[address] SQL DEVELOPER [facility] NRBCs per 100 WBC 0.0 <1.0 /100 025 7:[address] SQL DEVELOPER [facility] Absolute Neutrophils 4.59 1.60 - 8.30 10e3/uL 01/16/2025 7:[address] SQL DEVELOPER [facility] Absolute Lymphocytes 2.16 0.80 - 5.30 10e3/uL 01/16/2025 7:[address] SQL DEVELOPER [facility] Absolute Monocytes 0.34 0.00 - 1.30 10e3/uL 01/16/2025 7:[address] SQL DEVELOPER [facility] Absolute Eosinophils <0.03 0.00 - 0.70 10e3/uL 01/16/2025 7:[address] SQL DEVELOPER [facility] Absolute Basophils 0.04 0.00 - 0.20 10e3/uL 01/16/2025 7:[address] SQL DEVELOPER [facility] Absolute Immature Granulocytes <0.03 <=0.40 10e3/uL 01/16/2025 7:[address] SQL DEVELOPER [facility] Absolute NRBCs <0.03 10e3/uL 01/16/2025 7:[address] SQL DEVELOPER [facility] Blood STRUCTURE OF LEFT HAND / Unknown Venipuncture / Unknown 01/16/2025 7:[address] SQL DEVELOPER 01/16/2025 7:[address] SQL DEVELOPER us Gonzalez Burgos MD LAB - BLOOD ORDERABLES Final Result [facility] [address] Lab (1st floor, no room number) [place] [address], [facility] * (ABNORMAL) Basic Metabolic Panel (Limited Occurrences) (01/16/2025 7:[address] SQL DEVELOPER) Pathologist [facility] Sodium 142 135 - 145 mmol/L 01/16/2025 8:[address] SQL DEVELOPER LABORATORY Potassium 3.6 3.4 - 5.3 mmol/L 01/16/2025 8:15 PM [facility] Chloride 105 98 - 107 mmol/L 01/16/2025 8:15 PM [facility] Carbon Dioxide (CO2) 19(L) 22 - 29 mmol/L 01/16/2025 8:15 PM [facility] Anion Gap 18(H) 7 - 15 mmol/L 01/16/2025 8:15 PM [facility] Urea Nitrogen 9.4 6.0 - 20.0 mg/dL 01/16/2025 8:15 PM [facility] Creatinine 0.86 0.67 - 1.17 mg/dL 01/16/2025 8:15 PM [facility] GFR Estimate >90 >60 mL/min/1.7 3m2 01/16/2025 8:15 PM [facility] Comment:eGFR calculated 2020 CKD-EPI equation. Calcium 9.1 8.8 - 10.4 mg/dL 01/16/2025 8:15 PM [facility] Glucose 108(H) 70 - 99 mg/dL 01/16/2025 8:15 PM [facility] Blood STRUCTURE OF LEFT HAND / Unknown Venipuncture / Unknown 01/16/2025 7:[address] SQL DEVELOPER 01/16/2025 7:[address] SQL DEVELOPER us Gonzalez Burgos MD LAB - BLOOD ORDERABLES Final Result LABORATORY [facility] Acute Care Lab [address] Lab (1st floor, no room number) [place] [address], [facility] * (ABNORMAL) Ethanol Level Blood (01/16/2025 7:[address] SQL DEVELOPER) Pathologist [facility] Ethanol Level Blood 0.35(HH) <=0.01 g/dL 01/16/2025 8:[address] SQL DEVELOPER LABORATORY Comment:This is an unconfirm ed screening result to be used for medical purposes only. Blood STRUCTURE OF LEFT HAND / Unknown Venipuncture / Unknown 01/16/2025 7:[address] SQL DEVELOPER 01/16/2025 7:[address] SQL DEVELOPER us Gonzalez Burgos MD LAB - BLOOD ORDERABLES Final Result LABORATORY [facility] Acute Care Lab [address] [facility] Lab (1st floor, no room number) [place] [address], [facility] from Last 3 Months Insurance [employer] [facility] Care Teams Family Resource Coordinator Relationship Specialty Start Date End Date No Ref-Primary, Physician PCP - General 01/17/25
--- OUTSIDE RECORDS SUMMARY | 2025-01-17 11:06 | XMS_ITS | Encounter Summary ---
Author Organization [facility] Address [address] [place] [address]. [place] [address] Care Team Providers Care Manager Case Management Name Role Phone Unavailable Primary Care Provider Unavailabl e Encounter Details Date Type Department Care Team (Latest Contact Info) Description 01/16/2025 Travel Social History Tobacco Use Types Packs/Day Years Used Date Smoking Tobacco: Never Assessed Sex and Gender Information Value Date Recorded Sex Assigned at Not on file Legal Sex Male 6:59 PM FIRST COOK Gender Identity Not on file Sexual Orientation Not on file documented as of this encounter Plan of Treatment Not on file documented as of this encounter Visit Diagnoses Not on filedocumented in this encounter
[2025-01-17 11:31] VITALS: BP 115/81; PULSE 91; RESP 18; TEMP 37.2; O2SAT 96; BMI 29.5
--- NOTE | 2025-01-17 12:29 | ED_ITS ---
HPI - Animal Bite General Chief Complaint: Animal Bite Stated Complaint: dog bite - left calf Time Seen by Provider: 01/17/25 12:17 Related Data Home Medications ?Medication ?Instructions ?Recorded ?Confirmed lacosamide 200 mg tablet 200 mg PO BID 08/25/2411/24 medical marijuana inhalation 08/25/24 11/24/24 midazolam 5 mg/spray (0.1 mL) 1 spray intranasal 08/2511/24/24 nasal spray (Nayzilam) mirtazapine 15 mg tablet 7.5 - 30 mg PO QPM PRN insom jagdish 08/25/24 11/24/24 Previous Rx's ?Medication ?Instructions ?Recorded naproxen 500 mg tablet 500 mg PO BID PRN pain #60 t abs 08/25/24 divalproex 500 mg tablet,delayed 1,000 mg (2 x 500 mg) PO BID #120 11/24/24 release (Depakote) tabs zolpidem 10 mg tablet (Ambien) 5 - 10 mg (0.5 - 1 x 10 mg) PO QHS 11/24/24 PRN insomnia #30 tabs Allergies Allergy/AdvReac Type Severity Reaction Status Date / Time No Known Drug Allergies Allergy Verified 11/24/24 13:30 Review of Systems Status of ROS: Reports: 10 or more systems reviewed and unremarkable except as noted in History and below Narrative: Constitutional: No fevers, no weight gain or loss. Eyes: No discharge. No vision changes. HENT: No congestion, no sore throat, no ear pain. Cardiovascular: No chest pain, no palpitations. Respiratory: No shortness of breath, no wheezes, no cough. Gastrointestinal: No abdominal pain, no vomiting, no diarrhea. Genitourinary: No dysuria, no hematuria. Musculoskeletal: Normal range of motion. Skin: No rashes, no pruritis. Neurological: No dizziness, weakness, sensory change, speech change. Endo/Heme/Allergies: No bruising or bleeding. No polydipsia. Pysch: no suicidality, no anxiety, no insomnia. All other systems reviewed and are negative. 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) Surgical History History of excision of epidermal inclusion cyst (09/01/18) ?Z98.890 - Other specified postprocedural states (ICD-10) ?Z87.2 - Personal history of diseases of the skin and subcutaneous tissue (ICD-10) Family History Maternal Grandmother Diabetes High blood pressure Social History Narrative: Single, three kids, unemployed, medical marijuana, no EtOH, Ecig What is your current living situation?: I presently have a place to live Problems where you live: no known problems In the past 12 months, utilities in danger of being shut off: no In past 12 months, lack of transportation kept you from medical appts, meetings, work, or getting things needed for daily living: no In the past 12 mos, have been you worried that your food would run out before you had money to buy more?: never true In the past 12 mos, the food you bought just didn't last and you didn't have money to buy more?: never true How often does anyone, including family, friends and others, physically hurt you : never How often does anyone, including family, friends and others, insult or talk down to you: never How often does anyone, including family, friends and others, threaten you with harm: never How often does anyone, including family, friends and others, scream or curse at you: never Exam Narrative: Exam Narrative: Constitutional: Well-developed, well-nourished, no acute distress. HEENT: Normocephalic, atraumatic. Neck: Normal range of motion. Nontender. Supple. Heart: Regular. No murmurs. Normal rate. Intact distal pulses. Lungs: Clear to auscultation. No chest discomfort. No wheezes, rhonchi, or rales. Abdomen: Normal bowel sounds. Nontender. No rebound tenderness. Genitalia: Deferred. Back: No midline tenderness. Normal range of motion. Extremities: Normal range of motion. No injury. Skin: Intact. No rash. Warm. No erythema or pallor. Neurologic: No altered sensation. No weakness. Alert and oriented. Psychiatric: No suicidality. No anxiety or depression. No insomnia. Nursing notes and vitals signs are reviewed. Const: Vital Signs, click to edit/add: Vital Signs - 24 hr 01/17/25 11:31 Temperature 98.9 F Pulse Rate [Pulse Oximeter] 91 Respiratory Rate 18 Blood Pressure [Ri ght Upper Arm] 115/81 Pulse Oximetry 96 Oxygen Delivery Me thod Room Air Course Vital Signs Vital signs: Initial Vital Signs Temperature 98.9 F 01/17/25 11:31 Temperature Source Temporal Artery Scan 01/17/25 11:31 Pulse Rate 91 01/17/25 11:31 Respiratory Rate 18 01/17/25 11:31 Blood Pressure 115/81 01/17/25 11:31 Blood Pressure Mean 92 01/17/25 11:31 Pulse Oximetry 96 01/17/25 11:31 Oxygen Delivery Method Room Air 01/17/25 11:31 Vital Signs Temperature 98.9 F 01/17/25 11:31 Pulse Rate 91 01/17/25 11:31 Respiratory Rate 18 01/17/25 11:31 Blood Pressure 115/81 01/17/25 11:31 Pulse Oximetry 96 01/17/25 11:31 Oxygen Delivery Method Room Air 01/17/25 11:31 Temperature 98.9 F 01/17/25 11:31 Pulse Rate 91 01/17/25 11:31 Respiratory Rate 18 01/17/25 11:31 Blood Pressure 115/81 01/17/25 11:31 Pulse Oximetry 96 01/17/25 11:31 Oxygen Delivery Method Room Air 01/17/25 11:31 Discharge Plan Discharge Prescriptions: No Action zolpidem [Ambien] 10 mg tablet 5 - 10 mg PO QHS PRN (Reason: insomnia) Qty: 30 1RF divalproex [Depakote] 500 mg tablet,delayed release (DR/EC) 1,000 mg PO BID Qty: 120 2RF mirtazapine 15 mg tablet 7.5 - 30 mg PO QPM PRN (Reason: insomnia) lacosamide 200 mg tablet 200 mg PO BID Nayzilam 5 mg/spray (0.1 mL) spray,non-aerosol 1 spray intranasal medical marijuana inhalation naproxen 500 mg tablet 500 mg PO BID PRN (Reason: pain) Qty: 60 2RF Follow Up/Referrals: Slade Hernandez MD [Primary Care Provider, Family Practice]
== END 2025-01-17 13:44 | disposition left against medical advice (07) ==
PROVIDERS: Emergency Provider Emergency Medicine Emergency Medical Services; PCP Family Medicine
DX: Z53.21 Procedure and treatment not carried out due to patient leaving prior to being seen by health care provider (principal)